=== PATIENT | female | born 1990 | race Caucasian/White ===

== ENCOUNTER 2020-12-03 21:23 | Emergency (ER) | payer OTHER, MEDICAID | END 2020-12-03 22:14 | disposition home or self-care (01) | LOC: MADERS 21:23 | DX: S83.92XA Sprain of unspecified site of left knee, initial encounter (principal); G43.909 Migraine, unspecified, not intractable, without status migrainosus; Z79.899 Other long term (current) drug therapy; W18.30XA Fall on same level, unspecified, initial encounter ==

== ENCOUNTER 2021-03-18 08:35 | Emergency (ER) | payer MEDICAID ==
[2021-03-18 20:20] LABS: SARS-CoV-2 PCR by NAA Not Detected (NotDetected)
== END 2021-03-18 09:25 | disposition home or self-care (01) ==
LOC: MADERS 08:35
DX: J20.9 Acute bronchitis, unspecified (principal); Z20.822 Contact with and (suspected) exposure to COVID-19
CPT/HCPCS: 99283; U0003; U0005

== ENCOUNTER 2022-01-21 19:13 | Emergency (ER) | payer MEDICAID, OTHER | END 2022-01-21 20:00 | disposition home or self-care (01) | LOC: MADERS 19:13 | DX: M25.522 Pain in left elbow (principal); M25.422 Effusion, left elbow; E28.2 Polycystic ovarian syndrome; W22.8XXA Striking against or struck by other objects, initial encounter ==

== ENCOUNTER 2022-04-02 19:31 | Emergency (ER) | payer OTHER | END 2022-04-02 20:25 | disposition home or self-care (01) | LOC: MADERS 19:31 | DX: L98.9 Disorder of the skin and subcutaneous tissue, unspecified (principal); G43.909 Migraine, unspecified, not intractable, without status migrainosus; Z79.899 Other long term (current) drug therapy | CPT/HCPCS: 99283 ==

== ENCOUNTER 2023-11-02 14:39 | Emergency (ER) | payer BC, OTHER ==
[~2023-11-02 14:39] MED LIST: Iopamidol 370 76% 100 ML VIAL ONE
[2023-11-02 15:26] LABS: #Basophils 0.1 thou/uL (0.0-0.2); #Eosinphils 0.6 thou/uL (0.0-0.7); #Lymphocytes 4.4 thou/uL (1.20-3.40); #Monocytes 0.8 thou/uL (0.11-0.59); %Basophils 1.2 % (0.0-1.0); %Eosinophils 5.7 % (0.0-10.0); %Lymphocytes 40.1 % (21.0-51.0); %Monocytes 7.4 % (0.0-10.0); %Neutrophils 45.6 % (42.0-75.0); Hematocrit 39.6 % (36.0-47.0); Hemoglobin 13.2 g/dL (12.0-16.0); Mean Corpuscular HGB CONC 33.3 g/dL (32.0-36.0); Mean Corpuscular Hemoglobin 29.9 pg (27.0-31.0); Mean Corpuscular Volume 89.9 fl (78.0-98.0); Platelet Count 323 10x3/uL (130-400); RBC Distribution Width 11.5 % (11.5-14.5); Red Blood Cell (RBC) Count 4.41 mill/uL (4.20-5.40); White Blood Cell (WBC) Count 10.9 10x3/uL (4.8-10.8)
[2023-11-02] MEDS ORDERED: Lactated Ringer's 1,000 ML ONE (15:26)
[2023-11-02] MEDS ORDERED: Bupivacaine PF 0.5% 30 ML VIAL ONE (15:26)
[2023-11-02] MEDS ORDERED: Lidocaine 1% w/Epinephrine 1:100K 20 ML VIAL ONE (15:26)
[2023-11-02] MEDS ORDERED: Ampicillin/Sulbactam 3 GM VIAL ONE (15:26)
[2023-11-02 15:34] LABS: BHCG - Serum Negative (NEGATIVE); INR-International Normal Ratio 1.1; Pregs Control Background? CLEAR/WHITE (CLR/WHITE); Pregs Control Bar Appear? YES (CONTROL BAR)
[2023-11-02 15:35] LABS: PTT 28.8 sec (22.9-36.1)
[2023-11-02 15:40] LABS: ALT (SGPT) 13 U/L (8-55); AST (SGOT) 14 U/L (5-34); Albumin 4.2 g/dL (3.5-5.0); Alkaline Phosphatase 74 U/L (40-110); Anion Gap 15 mmol/L (10-20); BUN (Urea Nitrogen) 8 mg/dL (7.0-18.7); Bilirubin, Total 0.8 mg/dL (0.2-1.2); Calc. Creatinine Clearance 0 mL/min (70-130); Calcium 8.7 mg/dL (7.8-10.44); Carbon Dioxide 22 mmol/L (22-29); Chloride 107 mmol/L (98-107); Estimated GFR 117; Globulin 2.7 g/dL (2.4-3.5); Glucose 106 mg/dL (70-105); Potassium 3.5 mmol/L (3.5-5.1); Protein, Total 6.9 g/dL (6.0-8.3); Sodium 140 mmol/L (136-145)
== END 2023-11-02 17:35 | disposition home or self-care (01) ==
LOC: MADERS 14:39
DX: K04.7 Periapical abscess without sinus (principal); F32.9 Major depressive disorder, single episode, unspecified
CPT/HCPCS: 36415; 41800; 70487; 80053; 83605; 84703; 85025; 85610; 85730; 87040; 94760; 96374; J0295; J0665; J7120; Q9967

== ENCOUNTER 2024-04-06 19:50 | Emergency (ER) | payer BC | END 2024-04-06 21:05 | disposition home or self-care (01) | LOC: MADERS 19:50 | DX: L94.0 Localized scleroderma [morphea] (principal) | CPT/HCPCS: 99282 ==